=== PATIENT | female | born 1965 | race African-American/Black ===

== ENCOUNTER 2018-06-24 05:31 | Day surgery (SDC) | payer OTHER ==
[2018-06-20 16:50] VITALS: BMI 43.0
[2018-06-24] MEDS ORDERED: ACETAMINOPHEN 325 MG TABLET (FP) PO PRN (14:04)
[2018-06-24] MEDS ORDERED: IBUPROFEN 800 MG/8 ML IJ IVPB PRN (14:04)
--- NOTE | 2018-06-24 14:04 | HP ---
History & Physical Update - History History: No Change - Physical Physical: No Change - Assessment Assessment: No Change - Plan Plan: No Change (No change from H&P 06/20- AUB, possible endometrial polyp, for hysteroscopy, D&C, possible polypectomy vs myomectomy)
[2018-06-24] MEDS ORDERED: PROPOFOL 20 ML ONE ×3 (14:08→14:27)
[2018-06-24] MEDS ORDERED: SUCCINYLCHOLINE CHLORIDE 200 MG/10 ML VIAL ONE (14:08)
[2018-06-24] MEDS ORDERED: DEXAMETHASONE SOD PHOSPHATE 4 MG/1 ML VIAL ONE (14:09)
[2018-06-24] MEDS ORDERED: LIDOCAINE HCL/PF 2% SDV 5ML VIAL ONE (14:09)
[2018-06-24] MEDS ORDERED: LACTATED RINGERS SOLUTION 1,000 ML IV SCH (14:15)
[2018-06-24] MEDS ORDERED: KETOROLAC TROMETHAMINE 30 MG/1 ML VIAL ONE (14:23)
[2018-06-24] MEDS ORDERED: ONDANSETRON 4 MG/2 ML VIAL IVPUSH PRN (15:03)
[2018-06-24] MEDS ORDERED: oxyCODONE HCL 5 MG TABLET PO PRN (15:03)
[2018-06-24 16:25] VITALS: TEMP 97.8
[2018-06-24 18:01] VITALS: BP 119/66; PULSE 86
--- NOTE | 2018-06-24 18:04 | OP ---
Operative Note - Note: Operative Date: 06/24/18 (dictation [id number]) Pre-Operative Diagnosis: AUB, possible submucosal fibroid Operation: hysteroscopic myomectomy, suction D&C Findings: large intracaviatry fibroid noted Post-Operative Diagnosis: Same as Pre-op Surgeon: Destinee Sadler Anesthesiologist/FIRE CONTROL OFFICER: Katrin Feng Anesthesia: General (with lma) Specimens Removed: portions of fibroid Operative Report Dictated: Yes
--- NOTE | 2018-06-26 18:19 | PATH ---
Surgical Pathology Report Patient Name: KIRTI BAINS [facility]. Rec. #: [id number] /Age/Gender: 1965 (Age: 53) / F Account: [id number] Location: [facility] Taken: 06/24/2018 Received: 06/25/2018 Reported: 06/26/2018 Physicians: Destinee Sadler M.D. Specimen(s) Received UTERINE CONTENTS Clinical History Submucosal myoma Final Diagnosis CONTENTS OF UTERUS, EXCISION: PORTIONS OF SMOOTH MUSCLE BUNDLES, CONSISTENT WITH LEIOMYOMA. FRAGMENTS OF ENDOMETRIAL POLYP. SEPARETE FRAGMENTS OF PROLIFERATIVE ENDOMETRIUM. SEPARATE FRAGMENTS OF ENDOCERVICAL TISSUE WITH SQUAMOUS METAPLASIA. Electronically Signed Brandin Chun M.D. Gross Description Received in formalin labeled "contents of uterus," is a 6 g, 4.5 x 3.4 x 0.6 cm aggregate of mroley, firm to rubbery portions of tissue admixed with blood clot. The specimen is entirely submitted in 4 cassettes. /06/25/2018 saudi06/25/2018
--- NOTE | 2018-06-27 07:55 | OP ---
DATE OF OPERATION: 06/24/2018 PREOPERATIVE DIAGNOSES: Abnormal uterine bleeding, submucosal uterine fibroid. POSTOPERATIVE DIAGNOSES: Abnormal uterine bleeding, submucosal uterine fibroid. PROCEDURE: Hysteroscopic myomectomy, suction dilatation and curettage. FINDINGS: A large intracavitary fibroid. SURGEON: Destinee Sadler DO WOUND/OSTOMY CLINICAL NURSE SPECIALIST: None. ANESTHESIOLOGIST: Katrin Feng MD ANESTHESIA: LMA. COMPLICATIONS: Included a need for termination of procedure secondary to fluid deficit listed on the device as being over 1200 mL, as well as anesthesia reporting concern with oxygen saturation. SPECIMENS REMOVED: Included portions of fibroid. DISPOSITION: Stable to PACU. BRIEF HISTORY AND PROCEDURE: Patient is a 53-year-old female who has been seen in the office with complaints of abnormal, heavy uterine bleeding. The patient was counseled on her options, and she elected to undergo a hysteroscopic myomectomy, suction D&C. The patient was admitted to [facility] on June 24, 2018. Consents for the procedure, which were signed in the office, were reconfirmed. The patient was then taken back to the operating room, placed in dorsal lithotomy position, given anesthesia by Dr. Feng using LMA. A hard timeout was performed. A speculum was placed inside the vagina. The anterior lip of the cervix was grasped with a tenaculum, and the cervix was dilated to accommodate a diagnostic hysteroscope which was advanced to the fundus of the uterus. A large, intracavitary uterine fibroid was noted. The cervix was then further dilated to accommodate an operative hysteroscope which was advanced to the fundus, and resection of the fibroid was begun. After approximately 25% to 30% of the fibroid was resected, a large jump in the fluid deficit was noted on the resectoscope reading, and Anesthesia was reporting some difficulty with oxygen saturation. At this point, it was decided to terminate the procedure for patient safety. All instruments were removed from the vagina. Minimal bleeding was noted from the os as well as the tenaculum sites. Again, approximately 30% of the fibroid was resected, and portions of the fibroid were sent to Pathology for permanent evaluation. Suction D&C was performed once prior to termination of the procedure, and those specimens were also sent to Pathology for permanent evaluation. Patient was awoken from anesthesia, recovering in stable condition in the PACU after the procedure. DESTINEE SADLER DO /[id number]
== END 2018-06-24 18:02 | disposition home or self-care (01) ==
LOC: JASU-SURG 05:31
PROVIDERS: ATTEND Obstetrics & Gynecology
PROC: 0UJD8ZZ Inspection of Uterus and Cervix, Via Natural or Artificial Opening Endoscopic (ICD-10-PCS; 2018-06-24)
PROC: 0UB98ZZ Excision of Uterus, Via Natural or Artificial Opening Endoscopic (ICD-10-PCS; principal; 2018-06-24 14:00)
PROC: 0UDB7ZX Extraction of Endometrium, Via Natural or Artificial Opening, Diagnostic (ICD-10-PCS; 2018-06-24 14:00)
DX: N93.9 Abnormal uterine and vaginal bleeding, unspecified (principal); D25.0 Submucous leiomyoma of uterus
CPT/HCPCS: 36415; 84703; 86850; 86900; 86901; 88305-TC; 94760

== ENCOUNTER 2021-01-29 23:33 | Inpatient (IN) | payer OTHER ==
[2021-01-30] MEDS ORDERED: DEXAMETHASONE SOD PHOSPHATE 4 MG/1 ML VIAL IVPUSH ONE (01:23)
[2021-01-30] MEDS ORDERED: ACETAMINOPHEN 1000 MG/100 ML VIAL (NON FORMULARY) IVPB ONE (01:23)
[2021-01-30] MEDS ORDERED: SODIUM CHLORIDE 0.9% 500 ML INFUS.BAG IV ONE (01:23)
[2021-01-30] MEDS ORDERED: ACETAMINOPHEN INJECTION 100 ML IVPB ONE (01:29)
[2021-01-30] MEDS ORDERED: DEXAMETHASONE SOD PHOSPHATE 4 MG/1 ML VIAL ONE (01:29)
[2021-01-30 01:57] LABS: VENOUS BASE EXCESS -0.7 mmol/L (-2-2); VENOUS O2 SATURATION 31.7 % (70-80); VENOUS PCO2 51.2 mmHg (38-52); VENOUS PH 7.325 (7.310-7.410)
[2021-01-30 01:58] LABS: BASO % 0.2 % (0-2.0); HEMATOCRIT 37.1 % (32.4-45.2); HEMOGLOBIN 12.5 GM/dL (10.7-15.3); LYMPH % 15.1 % (8-40); MCHC 33.8 g/dl (32.0-36.0); MEAN CELL VOLUME 85.8 fl (80-96); MEAN PLT VOLUME 9.6 fl (7.5-11.1); MONO % 4.8 % (3.8-10.2); NEUT % 79.9 % (42.8-82.8); PLATELET COUNT 205 K/MM3 (134-434); RBC 4.33 M/mm3 (3.60-5.2); RDW 15.5 % (11.6-15.6); WHITE BLOOD COUNT 5.8 K/mm3 (4.0-10.0)
[2021-01-30 02:01] LABS: EPI CELLS 21 /uL (0-25.1); HYALINE CASTS 3 /uL (0-3.1); PH,URINE 5.5 (5.0-8.0); URINE APPEARANCE CLEAR; URINE BACTERIA 168 /uL (0-1359); URINE BILIRUBIN NEGATIVE (NEGATIVE); URINE COLOR YELLOW; URINE GLUCOSE (UA) NEGATIVE (NEGATIVE); URINE KETONE 1+ (NEGATIVE); URINE LEUK ESTERASE NEGATIVE (NEGATIVE); URINE NITRITE NEGATIVE (NEGATIVE); URINE PROTEIN 1+ (NEGATIVE); URINE RBC 36 /uL (0-23.9); URINE WBC 13 /uL (0-25.8)
[2021-01-30 02:15] LABS: INR 1.06 (0.83-1.09); PROTHROMBIN TIME (PATIENT) 12.8 SEC (9.7-13.0)
[2021-01-30 02:16] LABS: CALCIUM 8.3 mg/dL (8.5-10.1)
[2021-01-30 02:17] LABS: BLOOD UREA NITROGEN 4.9 mg/dL (7-18); CO2 29 mmol/L (21-32); GLUCOSE,RANDOM 103 mg/dL (74-106)
[2021-01-30 02:18] LABS: ACTIVATED PTT 31.7 SECONDS (25.2-36.5)
[2021-01-30 02:19] LABS: BILIRUBIN,DIRECT 0.1 mg/dL (0.0-0.2)
[2021-01-30 02:20] LABS: CREATININE 0.7 mg/dL (0.55-1.3); SGOT/AST 44 U/L (15-37); SGPT/ALT 37 U/L (13-61)
[2021-01-30 02:21] LABS: BILIRUBIN,TOTAL 0.6 mg/dL (0.2-1); TOT PROT 7.5 g/dl (6.4-8.2)
[2021-01-30 02:23] LABS: ALK PHOS 92 U/L (45-117); LDH 302 U/L (84-246)
[2021-01-30 02:35] LABS: ANION GAP 6 MMOL/L (8-16); CHLORIDE 101 mmol/L (98-107); POTASSIUM 3.7 mmol/L (3.5-5.1); SODIUM 136 mmol/L (136-145)
[2021-01-30] MEDS ORDERED: ALBUTEROL SO4 HFA INHALER IH PRN (04:08)
[2021-01-30] MEDS ORDERED: ACETAMINOPHEN 325 MG TABLET (FP) PO PRN (04:20)
[2021-01-30 07:21] LABS: HEMATOCRIT 38.1 % (32.4-45.2); HEMOGLOBIN 12.6 GM/dL (10.7-15.3); MCH 28.5 pg (25.7-33.7); MEAN CELL VOLUME 86.2 fl (80-96); MEAN PLT VOLUME 9.7 fl (7.5-11.1); PLATELET COUNT 206 K/MM3 (134-434); RBC 4.42 M/mm3 (3.60-5.2); RDW 15.3 % (11.6-15.6); WHITE BLOOD COUNT 6.4 K/mm3 (4.0-10.0)
[2021-01-30 07:59] LABS: BILIRUBIN,TOTAL 0.3 mg/dL (0.2-1); BLOOD UREA NITROGEN 5.4 mg/dL (7-18); CALCIUM 8.2 mg/dL (8.5-10.1); CREATININE 0.6 mg/dL (0.55-1.3); MAGNESIUM 1.9 mg/dL (1.8-2.4); PHOSPHOROUS 2.5 mg/dL (2.5-4.9); POTASSIUM 3.7 mmol/L (3.5-5.1); TOT PROT 7.6 g/dl (6.4-8.2)
[2021-01-30] MEDS ORDERED: buPROPion HCL 75 MG TABLET PO SCH (10:00)
[2021-01-30] MEDS: PANTOPRAZOLE 40 MG TABLET PO SCH (10:20)
[2021-01-30] MEDS: ENOXAPARIN NA (PORCINE) 40 MG/0.4 ML DISP.SYRIN SQ SCH ×2 (10:30→22:22)
[2021-01-30] MEDS: DEXAMETHASONE SOD PHOSPHATE 4 MG/1 ML VIAL IVPUSH SCH (10:35)
[2021-01-30] MEDS ORDERED: buPROPion HCL 100 MG TABLET ONE (10:48)
[2021-01-30] MEDS ORDERED: DEXAMETHASONE SOD PHOSPHATE 10 MG/1 ML VIAL ONE (10:48)
[2021-01-30] MEDS ORDERED: PANTOPRAZOLE 20 MG TABLET PO ONE (10:48)
[2021-01-30] MEDS ORDERED: ENOXAPARIN NA (PORCINE) 40 MG/0.4 ML DISP.SYRIN SQ ONE ×2 (10:49→22:18)
[2021-01-30] MEDS: BUDESONIDE/FORMETEROL FUMARATE 160/4.5 mcg INHALER IH SCH ×2 (14:44→22:22)
[2021-01-30] MEDS ORDERED: REMDESIVIR 200 MG in SODIUM CHLORIDE 210 ML IVPB ONE (16:00)
[2021-01-30] MEDS ORDERED: PNEUMOC 13-VAL CONJ-DIP CRM/PF 0.5 ML DISP.SYRIN IM ONE ×2 (16:40→17:00)
[2021-01-30] MEDS ORDERED: PNEUMOCOCCAL 23 VACCINE 0.5 ML VIAL IM ONE (17:00)
[2021-01-30] MEDS ORDERED: MONTELUKAST NA 10 MG TABLET ONE (22:18)
[2021-01-30] MEDS: MONTELUKAST NA 5 MG TAB.CHEW PO SCH (22:22)
[2021-01-31] MEDS ORDERED: PANTOPRAZOLE 40 MG TABLET ONE (08:10)
[2021-01-31] MEDS ORDERED: buPROPion HCL 100 MG TABLET ONE (08:11)
[2021-01-31] MEDS ORDERED: ENOXAPARIN NA (PORCINE) 40 MG/0.4 ML DISP.SYRIN SQ ONE ×2 (08:11→19:53)
[2021-01-31] MEDS ORDERED: DEXAMETHASONE SOD PHOSPHATE 4 MG/1 ML VIAL ONE (08:11)
[2021-01-31 08:16] LABS: HEMATOCRIT 36.9 % (32.4-45.2); HEMOGLOBIN 12.6 GM/dL (10.7-15.3); MCHC 34.1 g/dl (32.0-36.0); MEAN CELL VOLUME 85.1 fl (80-96); MEAN PLT VOLUME 9.5 fl (7.5-11.1); PLATELET COUNT 235 K/MM3 (134-434); RBC 4.33 M/mm3 (3.60-5.2); RDW 14.9 % (11.6-15.6); WHITE BLOOD COUNT 4.6 K/mm3 (4.0-10.0)
[2021-01-31 08:22] LABS: POTASSIUM 3.5 mmol/L (3.5-5.1)
[2021-01-31 08:26] LABS: MAGNESIUM 2.1 mg/dL (1.8-2.4)
[2021-01-31 08:28] LABS: CREATININE 0.6 mg/dL (0.55-1.3); PHOSPHOROUS 2.5 mg/dL (2.5-4.9)
[2021-01-31] MEDS ORDERED: guaiFENesin/D-METHORPHAN HB 10 ML UNIT-DOSE CUPS ONE ×2 (08:31→16:37)
[2021-01-31] MEDS: guaiFENesin/D-METHORPHAN HB 10 ML UNIT-DOSE CUPS PO PRN ×2 (09:00→16:38)
[2021-01-31] MEDS: ENOXAPARIN NA (PORCINE) 40 MG/0.4 ML DISP.SYRIN SQ SCH ×2 (09:01→21:21)
[2021-01-31] MEDS: DEXAMETHASONE SOD PHOSPHATE 4 MG/1 ML VIAL IVPUSH SCH (09:01)
[2021-01-31] MEDS: BUDESONIDE/FORMETEROL FUMARATE 160/4.5 mcg INHALER IH SCH ×2 (09:01→21:21)
[2021-01-31] MEDS: PANTOPRAZOLE 40 MG TABLET PO SCH (09:01)
[2021-01-31] MEDS: REMDESIVIR 100 MG in SODIUM CHLORIDE 230 ML IVPB SCH (10:41)
[2021-01-31] MEDS: ALBUTEROL SO4 HFA INHALER IH SCH ×2 (16:35→21:20)
[2021-01-31] MEDS ORDERED: ALBUTEROL SO4 HFA INHALER IH ONE (19:52)
[2021-01-31] MEDS ORDERED: MONTELUKAST NA 10 MG TABLET ONE (19:53)
[2021-01-31] MEDS: MONTELUKAST NA 5 MG TAB.CHEW PO SCH (21:21)
[2021-02-01] MEDS: guaiFENesin/D-METHORPHAN HB 10 ML UNIT-DOSE CUPS PO PRN ×4 (00:10→21:36)
[2021-02-01 03:35] VITALS: BMI 46.5
[2021-02-01 07:42] LABS: HEMATOCRIT 35.6 % (32.4-45.2); MCH 28.8 pg (25.7-33.7); MCHC 33.7 g/dl (32.0-36.0); MEAN CELL VOLUME 85.4 fl (80-96); MEAN PLT VOLUME 9.2 fl (7.5-11.1); PLATELET COUNT 250 K/MM3 (134-434); RBC 4.17 M/mm3 (3.60-5.2); WHITE BLOOD COUNT 4.7 K/mm3 (4.0-10.0)
[2021-02-01 07:43] LABS: POTASSIUM 3.7 mmol/L (3.5-5.1)
[2021-02-01 08:01] LABS: ALBUMIN 2.7 g/dl (3.4-5.0); CALCIUM 8.4 mg/dL (8.5-10.1); MAGNESIUM 1.9 mg/dL (1.8-2.4)
[2021-02-01 08:03] LABS: PHOSPHOROUS 3.1 mg/dL (2.5-4.9)
[2021-02-01 08:04] LABS: CREATININE 0.7 mg/dL (0.55-1.3)
[2021-02-01 08:05] LABS: BILIRUBIN,TOTAL 0.3 mg/dL (0.2-1); TOT PROT 6.8 g/dl (6.4-8.2)
[2021-02-01] MEDS: ALBUTEROL SO4 HFA INHALER IH SCH ×4 (09:30→20:00)
[2021-02-01] MEDS: DEXAMETHASONE SOD PHOSPHATE 4 MG/1 ML VIAL IVPUSH SCH (09:30)
[2021-02-01] MEDS: REMDESIVIR 100 MG in SODIUM CHLORIDE 230 ML IVPB SCH (09:31)
[2021-02-01] MEDS: ENOXAPARIN NA (PORCINE) 40 MG/0.4 ML DISP.SYRIN SQ SCH ×2 (09:31→21:29)
[2021-02-01] MEDS: PANTOPRAZOLE 40 MG TABLET PO SCH (09:31)
[2021-02-01] MEDS: BUDESONIDE/FORMETEROL FUMARATE 160/4.5 mcg INHALER IH SCH ×2 (09:54→21:57)
[2021-02-01] MEDS ORDERED: PT OWN MED DRAWER 7, Y5N ONE ×2 (12:37→20:01)
[2021-02-01] MEDS: MONTELUKAST NA 5 MG TAB.CHEW PO SCH (21:30)
[2021-02-01] MEDS: clonazePAM 0.5 MG TABLET PO PRN (21:36)
[2021-02-02] MEDS: guaiFENesin/D-METHORPHAN HB 10 ML UNIT-DOSE CUPS PO PRN ×3 (03:57→16:59)
[2021-02-02 07:38] LABS: HEMATOCRIT 35.2 % (32.4-45.2); HEMOGLOBIN 11.8 GM/dL (10.7-15.3); MCH 28.6 pg (25.7-33.7); MCHC 33.4 g/dl (32.0-36.0); MEAN CELL VOLUME 85.7 fl (80-96); MEAN PLT VOLUME 9.2 fl (7.5-11.1); PLATELET COUNT 249 K/MM3 (134-434); RBC 4.11 M/mm3 (3.60-5.2); RDW 15.4 % (11.6-15.6); WHITE BLOOD COUNT 4.9 K/mm3 (4.0-10.0)
[2021-02-02] MEDS: ALBUTEROL SO4 HFA INHALER IH SCH ×4 (07:46→20:00)
[2021-02-02 07:53] LABS: POTASSIUM 3.4 mmol/L (3.5-5.1)
[2021-02-02 07:57] LABS: ALBUMIN 2.6 g/dl (3.4-5.0); BLOOD UREA NITROGEN 8.6 mg/dL (7-18)
[2021-02-02 07:58] LABS: CALCIUM 8.4 mg/dL (8.5-10.1); MAGNESIUM 1.8 mg/dL (1.8-2.4)
[2021-02-02 08:01] LABS: PHOSPHOROUS 3.2 mg/dL (2.5-4.9)
[2021-02-02 08:02] LABS: BILIRUBIN,TOTAL 0.4 mg/dL (0.2-1); CREATININE 0.6 mg/dL (0.55-1.3); TOT PROT 6.4 g/dl (6.4-8.2)
[2021-02-02] MEDS ORDERED: POTASSIUM CHLORIDE TABS 20 MEQ TABLET.ER (FP) PO ONE (10:00)
[2021-02-02] MEDS: PANTOPRAZOLE 40 MG TABLET PO SCH (10:06)
[2021-02-02] MEDS: REMDESIVIR 100 MG in SODIUM CHLORIDE 230 ML IVPB SCH ×2 (10:06→10:46)
[2021-02-02] MEDS: BUDESONIDE/FORMETEROL FUMARATE 160/4.5 mcg INHALER IH SCH ×2 (10:06→21:24)
[2021-02-02] MEDS: DEXAMETHASONE SOD PHOSPHATE 4 MG/1 ML VIAL IVPUSH SCH (10:06)
[2021-02-02] MEDS: ENOXAPARIN NA (PORCINE) 40 MG/0.4 ML DISP.SYRIN SQ SCH ×2 (10:06→21:24)
[2021-02-02] MEDS: MONTELUKAST NA 5 MG TAB.CHEW PO SCH (21:24)
[2021-02-02] MEDS: guaiFENesin/CODEINE 10 ML UNIT-DOSE CUPS PO PRN (21:25)
[2021-02-02] MEDS: clonazePAM 0.5 MG TABLET PO PRN (21:25)
[2021-02-02] MEDS ORDERED: guaiFENesin/CODEINE 10 ML UNIT-DOSE CUPS PO SCH (22:00)
[2021-02-03] MEDS: guaiFENesin/D-METHORPHAN HB 10 ML UNIT-DOSE CUPS PO PRN ×2 (04:58→11:00)
[2021-02-03] MEDS: DEXAMETHASONE SOD PHOSPHATE 4 MG/1 ML VIAL IVPUSH SCH (10:00)
[2021-02-03] MEDS: ALBUTEROL SO4 HFA INHALER IH SCH ×4 (10:00→20:30)
[2021-02-03] MEDS: PANTOPRAZOLE 40 MG TABLET PO SCH (11:01)
[2021-02-03] MEDS: REMDESIVIR 100 MG in SODIUM CHLORIDE 230 ML IVPB SCH (11:01)
[2021-02-03] MEDS: ENOXAPARIN NA (PORCINE) 40 MG/0.4 ML DISP.SYRIN SQ SCH ×2 (11:01→21:56)
[2021-02-03] MEDS: BUDESONIDE/FORMETEROL FUMARATE 160/4.5 mcg INHALER IH SCH ×2 (11:01→21:58)
[2021-02-03] MEDS ORDERED: PT OWN MED DRAWER 7, Y5N ONE (21:25)
[2021-02-03] MEDS: MONTELUKAST NA 5 MG TAB.CHEW PO SCH (21:56)
[2021-02-03] MEDS: guaiFENesin/CODEINE 10 ML UNIT-DOSE CUPS PO PRN (21:56)
[2021-02-04 07:15] LABS: MCHC 34.4 g/dl (32.0-36.0); MEAN CELL VOLUME 84.3 fl (80-96); MEAN PLT VOLUME 9.1 fl (7.5-11.1); PLATELET COUNT 306 K/MM3 (134-434); RBC 4.15 M/mm3 (3.60-5.2); RDW 15.2 % (11.6-15.6); WHITE BLOOD COUNT 8.9 K/mm3 (4.0-10.0)
[2021-02-04 07:24] LABS: POTASSIUM 3.6 mmol/L (3.5-5.1)
[2021-02-04 07:40] LABS: CALCIUM 8.9 mg/dL (8.5-10.1)
[2021-02-04 07:42] LABS: ALBUMIN 2.4 g/dl (3.4-5.0); BLOOD UREA NITROGEN 11.8 mg/dL (7-18); MAGNESIUM 1.8 mg/dL (1.8-2.4)
[2021-02-04 07:45] LABS: BILIRUBIN,TOTAL 0.2 mg/dL (0.2-1); CREATININE 0.7 mg/dL (0.55-1.3); PHOSPHOROUS 3.4 mg/dL (2.5-4.9); TOT PROT 6.3 g/dl (6.4-8.2)
[2021-02-04] MEDS: DEXAMETHASONE SOD PHOSPHATE 4 MG/1 ML VIAL IVPUSH SCH (10:02)
[2021-02-04] MEDS: ENOXAPARIN NA (PORCINE) 40 MG/0.4 ML DISP.SYRIN SQ SCH (10:02)
[2021-02-04] MEDS: PANTOPRAZOLE 40 MG TABLET PO SCH (10:02)
[2021-02-04] MEDS: ALBUTEROL SO4 HFA INHALER IH SCH ×3 (10:02→16:59)
[2021-02-04] MEDS: BUDESONIDE/FORMETEROL FUMARATE 160/4.5 mcg INHALER IH SCH (10:03)
[2021-02-04] MEDS ORDERED: PNEUMOC 13-VAL CONJ-DIP CRM/PF 0.5 ML DISP.SYRIN IM ONE (10:41)
[2021-02-04] MEDS ORDERED: PNEUMOCOCCAL 23 VACCINE 0.5 ML VIAL IM ONE (11:15)
[2021-02-04 23:23] VITALS: BP 155/81; PULSE 79; TEMP 98.7
== END 2021-02-04 21:07 | disposition home or self-care (01) | DRG 177 ==
LOC: JER 23:33 → JERBED 01-30 01:24 → J4W 02-01 00:08
PROVIDERS: ADMIT Hospitalist; ATTEND Internal Medicine
PROC: XW033E5 Introduction of Remdesivir Anti-infective into Peripheral Vein, Percutaneous Approach, New Technology Group 5 (ICD-10-PCS; principal; 2021-01-30)
PROC: XW13325 Transfusion of Convalescent Plasma (Nonautologous) into Peripheral Vein, Percutaneous Approach, New Technology Group 5 (ICD-10-PCS; 2021-01-30)
DX: U07.1 COVID-19 (principal); J12.82 Pneumonia due to coronavirus disease 2019; J96.01 Acute respiratory failure with hypoxia; Z68.42 Body mass index [BMI] 45.0-49.9, adult; I10 Essential (primary) hypertension; D86.9 Sarcoidosis, unspecified; D64.9 Anemia, unspecified; J45.909 Unspecified asthma, uncomplicated; E66.01 Morbid (severe) obesity due to excess calories; F41.8 Other specified anxiety disorders
CPT/HCPCS: 36415; 36430; 71045-TC-FY; 80048; 80053; 81003; 82248; 82550; 82728; 82803; 83605; 83615; 83735; 84100; 84484; 85025; 85027; 85379; 85610; 85730; 86140; 86769; 86850; 86900; 86901; 87040; 87086; 87804; 93005; 93010; 94761; 99285-25; C9399; C9803; J0131; P9017; U0003; U0005

== ENCOUNTER 2022-08-10 04:12 | Inpatient (IN) | payer OTHER ==
[2022-08-08 17:20] VITALS: BMI 49.8
[2022-08-10] MEDS ORDERED: ceFAZolin SODIUM 1 GM VIAL ONE (06:49)
[2022-08-10] MEDS ORDERED: CEFAZOLIN 3 GM in DEXTROSE 5%-WATER - 100 ML IVPB ONE (07:00)
[2022-08-10] MEDS ORDERED: TRANEXAMIC ACID 1000 MG/10 ML VIAL IVPUSH ONE (07:00)
[2022-08-10] MEDS ORDERED: ACETAMINOPHEN 1000 MG/100 ML BAG IVPB ONE (07:00)
[2022-08-10] MEDS ORDERED: GABAPENTIN 300 MG CAPSULE PO ONE (07:00)
[2022-08-10] MEDS ORDERED: PHENAZOPYRIDINE HCL 100 MG TABLET (FP) PO ONE (07:00)
[2022-08-10] MEDS ORDERED: ONDANSETRON 4 MG/2 ML VIAL IVPUSH PRN ×2 (07:01→10:49)
[2022-08-10] MEDS ORDERED: BUPIVACAINE HCL/PF 0.25% (2.5MG/ML) 10 ML VIAL ONE (07:02)
[2022-08-10] MEDS ORDERED: DEXAMETHASONE SOD PHOSPHATE 10 MG/1 ML VIAL ONE (07:02)
[2022-08-10] MEDS ORDERED: PROPOFOL 20 ML ONE (07:04)
[2022-08-10] MEDS ORDERED: ROCURONIUM BROMIDE 50 MG/5 ML SYRINGE ONE (07:04)
[2022-08-10] MEDS ORDERED: MIDAZOLAM HCL 2 MG/2 ML SINGLE DOSE VIAL ONE (07:05)
[2022-08-10] MEDS ORDERED: SUCCINYLCHOLINE CHLORIDE 200 MG/10 ML SYRINGE ONE (07:05)
[2022-08-10] MEDS ORDERED: LACTATED RINGERS SOLUTION 1,000 ML IV SCH (07:15)
[2022-08-10] MEDS ORDERED: ALBUTEROL SO4 HFA INHALER IH PRN (07:22)
[2022-08-10] MEDS ORDERED: guaiFENesin/D-METHORPHAN HB 10 ML UNIT-DOSE CUPS PO PRN (07:22)
[2022-08-10] MEDS ORDERED: clonazePAM 0.25 MG ODT TABLETS SL PRN (07:22)
[2022-08-10] MEDS ORDERED: TRIAMTERENE AND HCTZ - 37.5 MG/25 MG CAPSULE PO PRN (07:22)
[2022-08-10] MEDS ORDERED: KETOROLAC TROMETHAMINE 30 MG/1 ML VIAL ONE ×2 (07:47→09:33)
[2022-08-10] MEDS ORDERED: KETAMINE HCL 200 MG/20 ML VIAL ONE (07:48)
[2022-08-10] MEDS ORDERED: DEXAMETHASONE SOD PHOSPHATE 4 MG/1 ML VIAL ONE (08:06)
[2022-08-10] MEDS ORDERED: ceFAZolin 2 GRAM PREMIX BAG IVPB ONE (08:12)
[2022-08-10] MEDS ORDERED: SUGAMMADEX SODIUM 200 MG/2 ML VIAL ONE (09:30)
[2022-08-10] MEDS ORDERED: SODIUM CHLORIDE 0.9% P/F 10 ML VIAL IJ ONE (09:32)
[2022-08-10] MEDS ORDERED: HYDROmorphone HCl 2 MG/ML VIAL ONE (09:32)
[2022-08-10] MEDS ORDERED: HYDROmorphone *PCA* 10MG/50ML DISP.SYRIN PCA SCH ×2 (10:45→13:09)
[2022-08-10] MEDS ORDERED: BISACODYL 5 MG TABLET.DR (FP) PO PRN (10:49)
[2022-08-10] MEDS ORDERED: DOCUSATE SODIUM 100 MG CAPSULE (FP) PO PRN (10:49)
[2022-08-10] MEDS ORDERED: HYDROmorphone *PCA* 10MG/50ML DISP.SYRIN ONE (11:03)
[2022-08-10] MEDS ORDERED: SODIUM CHLORIDE 1,000 ML IV SCH (11:15)
[2022-08-10 15:55] LABS: HEMATOCRIT 37.4 % (32.4-45.2); HEMOGLOBIN 12.2 GM/dL (10.7-15.3); MCH 27.5 pg (25.7-33.7); MCHC 32.6 g/dl (32.0-36.0); MEAN CELL VOLUME 84.3 fl (80-96); MEAN PLT VOLUME 8.4 fl (7.5-11.1); PLATELET COUNT 293 10^3/uL (134-434); RBC 4.44 M/mm3 (3.60-5.2); RDW 15.9 % (11.6-15.6); WHITE BLOOD COUNT 15.5 K/mm3 (4.0-10.0)
[2022-08-10] MEDS ORDERED: IBUPROFEN 800 MG/8 ML IJ IVPB PRN (16:00)
[2022-08-10 16:15] LABS: CALCIUM 9.2 mg/dL (8.5-10.1)
[2022-08-10 16:17] LABS: BLOOD UREA NITROGEN 16.2 mg/dL (7-18)
[2022-08-10 16:20] LABS: CREATININE 0.9 mg/dL (0.55-1.3)
[2022-08-10] MEDS: ACETAMINOPHEN 500 MG TABLET (FP) PO SCH (17:40)
[2022-08-10] MEDS: CEFAZOLIN SODIUM 2 GM in DEXTROSE 5%-WATER 100 ML IVPB SCH (17:42)
[2022-08-10] MEDS: MONTELUKAST NA 5 MG TAB.CHEW PO SCH (21:41)
[2022-08-10] MEDS: BUDESONIDE/FORMETEROL FUMARATE 160/4.5 mcg INHALER IH SCH (22:26)
[2022-08-11] MEDS: ACETAMINOPHEN 500 MG TABLET (FP) PO SCH ×3 (00:17→16:55)
[2022-08-11] MEDS: CEFAZOLIN SODIUM 2 GM in DEXTROSE 5%-WATER 100 ML IVPB SCH (00:17)
[2022-08-11] MEDS: SIMETHICONE 80 MG TAB.CHEW (FP) PO PRN ×2 (01:00→20:34)
[2022-08-11 08:47] LABS: HEMATOCRIT 30.3 % (32.4-45.2); HEMOGLOBIN 9.9 GM/dL (10.7-15.3); MCH 27.2 pg (25.7-33.7); MCHC 32.6 g/dl (32.0-36.0); MEAN CELL VOLUME 83.4 fl (80-96); MEAN PLT VOLUME 8.7 fl (7.5-11.1); PLATELET COUNT 278 10^3/uL (134-434); RBC 3.63 M/mm3 (3.60-5.2); RDW 15.8 % (11.6-15.6); WHITE BLOOD COUNT 11.5 K/mm3 (4.0-10.0)
[2022-08-11 09:16] LABS: BLOOD UREA NITROGEN 10.8 mg/dL (7-18); CALCIUM 8.7 mg/dL (8.5-10.1)
[2022-08-11 09:19] LABS: CREATININE 0.8 mg/dL (0.55-1.3)
[2022-08-11] MEDS: ENOXAPARIN NA (PORCINE) 40 MG/0.4 ML DISP.SYRIN SQ SCH (09:48)
[2022-08-11] MEDS: FERROUS SO4 325 MG TABLET (FP) PO SCH ×2 (09:48→19:49)
[2022-08-11] MEDS: BUDESONIDE/FORMETEROL FUMARATE 160/4.5 mcg INHALER IH SCH ×3 (09:50→22:19)
[2022-08-11] MEDS: IBUPROFEN 600 MG TABLET (FP) PO PRN (20:34)
[2022-08-11 21:45] VITALS: RESP 18
[2022-08-11] MEDS: MONTELUKAST NA 5 MG TAB.CHEW PO SCH (22:19)
[2022-08-12] MEDS: ACETAMINOPHEN 500 MG TABLET (FP) PO SCH ×2 (01:32→08:56)
[2022-08-12] MEDS: IBUPROFEN 600 MG TABLET (FP) PO PRN ×2 (06:23→13:53)
[2022-08-12] MEDS: SIMETHICONE 80 MG TAB.CHEW (FP) PO PRN ×2 (06:24→13:53)
[2022-08-12] MEDS: FERROUS SO4 325 MG TABLET (FP) PO SCH ×2 (08:57→09:16)
[2022-08-12] MEDS: BUDESONIDE/FORMETEROL FUMARATE 160/4.5 mcg INHALER IH SCH (09:00)
[2022-08-12] MEDS: ENOXAPARIN NA (PORCINE) 40 MG/0.4 ML DISP.SYRIN SQ SCH (09:00)
[2022-08-12 09:59] VITALS: BP 100/56; PULSE 74; TEMP 98.4
== END 2022-08-12 16:20 | disposition home or self-care (01) | DRG 743 ==
LOC: J2C 04:12 → J3W 15:16
PROVIDERS: ADMIT Obstetrics & Gynecology; ATTEND Obstetrics & Gynecology
PROC: 0DNW0ZZ Release Peritoneum, Open Approach (ICD-10-PCS; 2022-08-10)
PROC: 0UT70ZZ Resection of Bilateral Fallopian Tubes, Open Approach (ICD-10-PCS; 2022-08-10)
PROC: 0UT90ZZ Resection of Uterus, Open Approach (ICD-10-PCS; principal; 2022-08-10 07:30)
DX: D25.9 Leiomyoma of uterus, unspecified (principal); N92.0 Excessive and frequent menstruation with regular cycle; R10.2 Pelvic and perineal pain; N73.6 Female pelvic peritoneal adhesions (postinfective)
CPT/HCPCS: 36415; 80048; 81025; 85027; 86850; 86900; 86901; 88302-TC; 88307-TC; 94010; 94760; C9803-CS; J1100; U0003; U0005